=== PATIENT | female | born 2000 | race Caucasian/White ===

== ENCOUNTER 2020-01-26 16:26 | Emergency (ER) | payer OTHER ==
[2020-01-26 16:42] VITALS: BP 141/81; PULSE 91; RESP 18; TEMP 98.1
--- NOTE | 2020-01-26 17:44 | ED ---
Recheck HPI - General Chief Complaint: Needlestick/Exposure Stated Complaint: [facility] - needlestick Time Seen by Provider: 01/26/20 16:58 Source: patient Mode of arrival: ambulatory Limitations: no limitations - History of Present Illness Initial Comments: 19-year-old female presents today for chief complaint of needle stick. She states she was given an insulin injection when she struck her left index finger near the base. Patient denies any known hepatitis or HIV infection. Patient denies knowing if the patient has any of these active infections. She states she does not believe they do she states that she believes the source to be tested. Patient denies additional complaints she states she cleansed the area. Remaining review of systems negative . - Related Data Allergies Allergy/AdvReac Type Severity Reaction Status Date / Time No Known Allergies Allergy Verified 01/26/20 16:40 Review of Systems ROS Statement: Those systems with pertinent positive or pertinent negative responses have been documented in the HPI. ROS Other: All systems not noted in ROS Statement are negative. Past Medical History Past Medical History: No Reported History Past Surgical History: No Surgical Hx Reported Past Psychological History: No Psychological Hx Reported Smoking Status: Never smoker Past Alcohol Use History: None Reported Past Drug Use History: None Reported General Exam - General Exam Comments Initial Comments: General: The patient is awake and alert, in no distress Musculoskeletal: Normal ROM, no tenderness. Strength 5/5. Sensation intact. Pulses equal bilaterally 2+. Neurological: A&O x 3. CN II-XII intact grossly, There are no obvious motor or sensory deficits. Coordination appears grossly intact. Speech is normal. Skin: Skin is warm and dry and no rashes or obvious lesions are noted. Psychiatric: Cooperative, appropriate mood & affect, normal judgment. Limitations: no limitations Course Vital Signs 01/26/20 16:40 Temperature 98.1 F Pulse Rate 91 Respiratory 18 Rate Blood Pressure 141/81 O2 Sat by Pulse 99 Oximetry Medical Decision Making - Medical Decision Making Tdap UTD. Pt tested. Working to get source tested. Patient is aware of HIV prophylaxis, declines at this time. Recommend repeat testing in 2-3months. Patient discharged appearing well. Discsused case wt Dr. kingston Disposition Clinical Impression: Needle stick injury of finger Disposition: HOME SELF-CARE Condition: Good Instructions (If sedation given, give patient instructions): Needle Stick Injuries (ED) Additional Instructions: Please use medication as discussed. Please follow-up with family doctor in the next 2 days, repeat laboratory studies in 2-3 months for repeat HIV testing/HepC/B. Please return to emergency room if the symptoms increase or worsen or for any other concerns. Is patient prescribed a controlled substance at d/c from ED?: No Referrals: Pedro Disla DO [Primary Care Provider] - 1-2 days Time of Disposition: 17:47
== END 2020-01-26 18:36 | disposition home or self-care (01) ==
LOC: EC 16:26
DX: Z77.21 Contact with and (suspected) exposure to potentially hazardous body fluids (principal); W46.0XXA Contact with hypodermic needle, initial encounter; Y99.0 Civilian activity done for income or pay; Y93.89 Activity, other specified; Y92.69 Other specified industrial and construction area as the place of occurrence of the external cause
CPT/HCPCS: 99283